=== PATIENT | female | born 1965 | race Caucasian/White ===

== ENCOUNTER 2023-11-29 11:50 | Day surgery (SDC) | payer MEDICARE ==
[2023-11-29] MEDS ORDERED: Versed 2 MG/2 ML Injection IV PRN (11:58)
[2023-11-29] MEDS ORDERED: CEFAZOLIN 2 GM-D5W BAG** 2 GM/50 ML ML IV ONE (12:18)
[2023-11-29] MEDS ORDERED: Lactated Ringers 1,000 ML IV ONE (12:19)
[2023-11-29] MEDS: Lactated Ringers 1,000 ML IV SCH (12:23)
[2023-11-29] MEDS: CEFAZOLIN 2 GM-D5W BAG** 2 GM/50 ML ML IV ONE (12:23)
[2023-11-29] MEDS ORDERED: Pepcid 20 MG VIAL IV ONE (12:32)
[2023-11-29] MEDS ORDERED: Decadron 4 MG ONE (12:32)
[2023-11-29] MEDS ORDERED: TYLENOL EXTRA STRENGTH 500 MG ONE (12:32)
[2023-11-29] MEDS ORDERED: Reglan 10 MG/2 ML ONE (12:32)
[2023-11-29] MEDS ORDERED: celeBREX 100 MG ONE (12:33)
[2023-11-29] MEDS ORDERED: NEURONTIN ONE (12:33)
[2023-11-29 12:40] LABS: Absolute Neutrophil Ct (ANC) 5.04 x10^3/uL (1.4-6.9); BASOPHIL % 0.6 % (0.0-0.4); Basophil (Absolute #) 0.04 x10^3/uL (0-0.4); Eosinophil % 0.3 % (0.00-5.0); Eosinophil (Absolute #) 0.02 x10^3/uL (0-0.5); Hematocrit 45.8 % (35-47); Hemoglobin 15.3 g/dL (12.0-16.0); IMMATURE GRAN # 0.02 x10^3u/L (0.00-0.03); IMMATURE GRAN % 0.3 % (0.00-0.4); Lymphocyte (Absolute #) 1.63 x10^3/uL (1.0-4.6); Lymphocytes % 22.4 % (24.0-44.0); Mean Cell Volume 103.6 fL (78-100); Mean Corpuscular Hemoglobin 34.6 pg (26-32); Mean Corpuscular Hgb Concent. 33.4 g/dL (32-36); Mean Platelet Volume 9.9 fL (7.5-11.0); Monocyte (Absolute #) 0.52 x10^3/uL (0.0-1.3); Monocytes % 7.2 % (0.0-12.0); Neutrophil % 69.2 % (36.0-66.0); Platelet Count 244 x10^3/uL (150-450); Red Blood Count 4.42 x10^6/uL (4.1-5.4); Red Cell Distribution Width 12.5 % (11.5-14.0); White Blood Count 7.3 x10^3/uL (4.0-10.5)
[2023-11-29] MEDS: celeBREX 100 MG PO ONE (12:41)
[2023-11-29] MEDS: NEURONTIN PO ONE (12:41)
[2023-11-29] MEDS: Decadron 4 MG PO ONE (12:45)
[2023-11-29] MEDS: Pepcid 20 MG VIAL IV ONE (12:50)
[2023-11-29] MEDS: Reglan 10 MG/2 ML IV ONE (12:50)
[2023-11-29 12:54] LABS: ALBUMIN 3.8 g/dL (3.5-5.0); ANION GAP 11.4 MEQ/L (5-15); BILIRUBIN,TOTAL 1.6 mg/dL (0.2-1.3); Calcium 9.1 mg/dL (8.4-10.2); Creatinine 1 1.05 mg/dL (0.52-1.04); EST GLOMERULAR FILTRATION RATE 60.8 ML/MIN; Potassium 4.2 mmol/L (3.5-5.1)
[2023-11-29 12:56] LABS: INR 1.01 (0.8-3.0); PTT 26.5 SECONDS (25.1-36.5)
[2023-11-29] MEDS: TYLENOL EXTRA STRENGTH 500 MG PO ONE (13:00)
[2023-11-29] MEDS ORDERED: Xylocaine 1% Vial 30 ML PF IJ ONE (15:37)
[2023-11-29] MEDS ORDERED: Marcaine Mpf 0.5% Vial 30 Ml ONE (15:37)
[2023-11-29] MEDS ORDERED: ROCURONIUM BROMIDE IV ONE (15:46)
[2023-11-29] MEDS ORDERED: Zofran 4 MG/2 ML VIAL ONE (15:46)
[2023-11-29] MEDS ORDERED: DIPRIVAN 200 MG/20 ML IV ONE (15:46)
[2023-11-29] MEDS ORDERED: Decadron 4 MG INJ ONE (15:46)
[2023-11-29] MEDS ORDERED: BRIDION 200MG/2ML IV ONE (15:46)
[2023-11-29] MEDS ORDERED: SUBLIMAZE 100 MCG/2 ML ONE (15:46)
[2023-11-29] MEDS ORDERED: Xylocaine-Mpf 2% 5 Ml Vial ONE (15:46)
[2023-11-29] MEDS ORDERED: Amidate 20 MG/10 ML IV ONE (15:52)
[2023-11-29] MEDS ORDERED: ATROPINE SULFATE 1MG ONE (15:59)
[2023-11-29] MEDS ORDERED: Ephedrine Sulfate 50 MG/ML ONE (16:05)
--- NOTE | 2023-11-29 18:30 | XRAY ---
Indication: Right 1st MTP arthrodesis, 2nd maura osteotomy, and hammertoe correction 2nd/3rd toes. Intraoperative fluoroscopy provided for 1 minute 52 seconds. 21 digital spot images submitted for interpretation demonstrates arthrodesis 1st MTP, 2nd metatarsal head maura osteotomy, and fusion 2nd/3rd toes all with intact hardware. Correlate with intraoperative findings/report.
[2023-11-29 23:09] VITALS: O2SAT 99
[2023-11-30 04:14] VITALS: BP 113/62
[2023-11-30 08:11] VITALS: PULSE 53; RESP 16; TEMP 98.2
--- NOTE | 2023-11-30 08:47 | OP ---
SURGERY DATE/TIME: 11/29/2023 7301 PREOPERATIVE DIAGNOSES: 1) Osteoarthritis first metatarsophalangeal joint. 2) Severe Hallux abductovalgus. 3) Deformity of metatarsal. 4) Hammer toe digits 2, 3, 4 and 5. 5) Right foot pain. POSTOPERATIVE DIAGNOSES: 1) Osteoarthritis first metatarsophalangeal joint. 2) Severe Hallux abductovalgus. 3) Deformity of metatarsal. 4) Hammer toe digits 2, 3, 4 and 5. 5) Right foot pain. 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 PROCEDURES: 1) First metatarsophalangeal joint, first tarsometatarsal joint arthrotomy. 2) Hammer toe correction to 2, 3, 4 and 5. SURGEON: Guilherme San DPM. SECURITY OFFICER: None. ANESTHESIA: General. HEMOSTASIS: Thigh tourniquet set to 250 mm of Mercury for approximately 75 total tourniquet minutes. ESTIMATED BLOOD LOSS: 5 cc. INJECTABLES: 30 cc of a 1:1 mixture of 1% lidocaine plain and 0.5% bupivacaine plain injected in ankle block-type fashion. INDICATION FOR SURGERY: Swati is a very pleasant 58-year-old female with Down syndrome who presented accompanied by her mother with concerns of recent increasing pain to the first metaphalangeal joint. Due to the patient's Down syndrome, the patient has been having issues with her bunion, which has progressively gotten worse to the point where she is unable to wear shoes. She has been taking off her shoes throughout the day and refusing to put them back on and has been limiting her ambulation secondary to the pain that she has been experiencing per her mother. From that standpoint, the patient was assessed and deemed to be a reasonable candidate for surgical intervention in regards to the bunion deformity. When held in corrected position the bunion deformity does correct nicely. However, there is significant sway of the second and third digits as well as worsening contractures of the second and third. 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 However, this does not cause her any pain. Discussion was held with her mother in regards to options for surgical correction and patient was made aware of all risks, complications and benefits of surgical intervention including but not limited to infection, hematoma, seroma, possibility of delayed wound healing, nonwound healing, possibility of nerve damage, possibility of vascular damage and possible complex regional pain syndrome. The patient understands all of these risks and more. She wishes to proceed with surgical intervention at this time. Plenty of time was allowed for her mother to ask questions who is her Power of Historical Interpreter, which were answered to her apparent satisfaction. It is at this time we decided to proceed. DESCRIPTION OF PROCEDURE AND FINDINGS: The patient was brought into the OR and placed on the OR table in the supine position. At this time, general anesthesia was administered until the patient was adequately sedated. The right thigh had a well-padded thigh tourniquet applied which was set to 250 mm of Mercury. At this time, the right lower extremity was prepped and draped in the typical sterile fashion and lowered onto the surgical field. At this time, attention was directed to the first metatarsophalangeal joint where a linear incision was made over the extensor hallucis longus this was bowstrung secondary to the deformity in the lateral aspect. From that standpoint, the soft tissue attachments were carefully dissected until the first metaphalangeal joint was identified. Significant osteoarthritis was encountered with eburnation of the dorsal aspect of the joint as well as articular cartilage adaptation at the medial aspect of the joint. Cup and conical reamers were utilized to resect the cartilage off both of the metatarsal heads and the base of the proximal phalanx. Copious amounts of sterile saline were utilized to flush the surgical site. At this time, a 2 mm drill was utilized to fenestrate the subchondral plate. From this standpoint, a K-wire was introduced from the distal medial aspect to the proximal lateral aspect gaining excellent position. A first metatarsophalangeal joint 0 degree ALPS plate was introduced dorsally and fixated with eccentric and interfragmentary screw, 3.4 x 28 VPC with a combination of locking and nonlocking screws. Position was assessed on radiographs and deemed to be excellent. We moved on to the Yesenia osteotomy where once again a linear incision was carried down to the extensor tendon which Z-tendon lengthening was performed this was retracted out of the site. Varus deformity of the second metatarsal head was identified and removed identified as likely an accessory ossicle. However, the joint surface did appear to be unbothered by this accessory ossicle at the dorsal aspect of the joint this was removed and handed off the field. At this time, an 18 mm sagittal saw was utilized to make a cut perpendicular to the weightbearing surface just under the cartilage lip of the second metatarsal head this was pushed back and laterally slightly to have the toe drift into a medial orientation this was affective however not sufficient enough. The decision was made to repair the medial collateral ligament which the lateral collateral ligament was resected and then a 1.45 JuggerKnot was introduced into the base of the proximal phalanx and secured and then anchored into the medial collateral ligaments soft tissue pulling the toe medially. Following this, both the second and third digits were prepped as the proximal interphalangeal joints resecting the base of the middle phalanx and the head of the proximal phalanx. Following this, K-wires were retrograded out of the tip of the toe and then anterograded down towards the cortex of the proximal phalanx. A 36 x 2.5 and 22 x 2.5 VPC screw was introduced into the second was introduced into the second and third toes respectively. Following this, copious amounts of sterile saline were utilized to flush the surgical site. Monocryl was utilized to repair the extensor tendon an then Monocryl was utilized in a simple interrupted buried-type fashion to repair the subcu. 4-0 Nylon was utilized to coapt the skin edges in a simple horizontal mattress-type fashion everting the skin edges. Following this, a dressing consisting of Betadine, Adaptic, 4x4, Kerlix and TEVIN was applied to the patient's right lower extremity. The patient was reversed from anesthesia and returned to the postoperative anesthesia care unit with vital signs stable and vascular status intact. The patient handled the anesthesia as well as the procedure without significant complication. Postoperative orders as indicated in the patient's discharge chart.
--- NOTE | 2023-11-30 12:08 | XRAY ---
One minute and 52 seconds of fluoroscopy was used in surgery for a right 1st MTP arthrodesis, 2nd maura osteotomy, and hammertoe correction 2nd/3rd toes.
== END 2023-11-30 13:32 | disposition home or self-care (01) ==
LOC: SDC 11:50 → MED SURG 19:20 → SDC 11-30 13:32
PROVIDERS: ATTEND Podiatrist Foot & Ankle Surgery
DX: M19.071 Primary osteoarthritis, right ankle and foot (principal); M20.11 Hallux valgus (acquired), right foot; M21.961 Unspecified acquired deformity of right lower leg; M20.41 Other hammer toe(s) (acquired), right foot; M79.671 Pain in right foot
CPT/HCPCS: 01480; 27695; 28020; 28022; 28122; 28285; 28308; 28313; 36415; 73630; 76000; 80053; 85025; 85610; 85730; 88304; 88311; C1713; J0461; J0690; J1100; J2001; J2405; J2704; J3010; A9270-GY